=== PATIENT | female | born 1935 | race Caucasian/White ===

== ENCOUNTER → 2016-07-03 | Outpatient (CLI) | payer MEDICARE, OTHER ==
[~2016-07-03] MED LIST: BONIVA PO; CALCIUM PO; CHOL10002 PO; FLUO20CA19 PO; LEVO112T4 PO; METO50TA11 PO
== END | disposition home or self-care (01) ==
LOC: CFH 12:17
PROVIDERS: ATTEND Radiology Radiation Oncology
DX: Z12.31 Encounter for screening mammogram for malignant neoplasm of breast (principal); Z85.3 Personal history of malignant neoplasm of breast; Z90.12 Acquired absence of left breast and nipple; Z90.11 Acquired absence of right breast and nipple; Z92.3 Personal history of irradiation; Z92.21 Personal history of antineoplastic chemotherapy
CPT/HCPCS: 77063; G0202

== ENCOUNTER → 2016-10-17 | Outpatient (CLI) | payer MEDICARE, OTHER | END | disposition home or self-care (01) | LOC: CFH 14:03 | PROVIDERS: ATTEND Radiology Radiation Oncology | DX: M16.0 Bilateral primary osteoarthritis of hip (principal); M47.896 Other spondylosis, lumbar region; M25.78 Osteophyte, vertebrae; C50.412 Malignant neoplasm of upper-outer quadrant of left female breast ==

== ENCOUNTER → 2016-10-17 | Outpatient (CLI) | payer MEDICARE, OTHER | END | disposition home or self-care (01) | LOC: ROC 12:52 | PROVIDERS: ATTEND Radiology Radiation Oncology | DX: C50.912 Malignant neoplasm of unspecified site of left female breast (principal) | CPT/HCPCS: G0463 ==

== ENCOUNTER → 2016-12-26 | Outpatient (CLI) | payer MEDICARE, OTHER | END | disposition home or self-care (01) | LOC: CFH 13:29 | PROVIDERS: ATTEND Internal Medicine Hematology & Oncology | DX: N63 Unspecified lump in breast (principal); Z85.3 Personal history of malignant neoplasm of breast | CPT/HCPCS: 76641; G0206 ==

== ENCOUNTER → 2017-04-30 | Outpatient (CLI) | payer MEDICARE, OTHER ==
[~2017-04-30] MED LIST changes: +METO-264 PO; -METO50TA11 PO
== END | disposition home or self-care (01) ==
LOC: ROC 11:03
PROVIDERS: ATTEND Radiology Radiation Oncology
DX: Z08 Encounter for follow-up examination after completed treatment for malignant neoplasm (principal); C50.911 Malignant neoplasm of unspecified site of right female breast; Z88.0 Allergy status to penicillin
CPT/HCPCS: G0463

== ENCOUNTER 2017-08-14 09:44 | Day surgery (SDC) | payer MEDICARE, OTHER ==
[~2017-08-14] VITALS: Ht 157.5 cm; Wt 55.5 kg
[2017-08-14 10:25] VITALS: BP 161/64
[2017-08-14] MEDS ORDERED: SODIUM CHLORIDE 0.9% 1,000 ML IV SCH (10:30)
[2017-08-14] MEDS ORDERED: LOSA25TA5 PO (10:32)
[2017-08-14] MEDS ORDERED: ALLO100T30 PO (10:32)
[2017-08-14] MEDS ORDERED: SIMV20TA3 PO (10:33)
[2017-08-14] MEDS ORDERED: PROPOFOL 10 MG/ML, 20ML ONE (11:51)
== END 2017-08-14 13:16 | disposition home or self-care (01) ==
LOC: CACL 09:44
PROVIDERS: ATTEND Internal Medicine Cardiovascular Disease
DX: I05.0 Rheumatic mitral stenosis (principal); I10 Essential (primary) hypertension; E78.5 Hyperlipidemia, unspecified; E03.9 Hypothyroidism, unspecified; Z72.0 Tobacco use
CPT/HCPCS: 93312; 93321; 93325; J2704

== ENCOUNTER 2017-09-16 08:00 | Day surgery (SDC) | payer MEDICARE, OTHER ==
[~2017-09-16] VITALS: Ht 160 cm; Wt 53.6 kg
[~2017-09-16 08:00] MED LIST changes: +ALLO100T30 PO; +LOSA25TA5 PO; +SIMV20TA3 PO
[2017-09-16 08:19] VITALS: BP 149/59
[2017-09-16 09:06] LABS: BASOPHILS # (AUTO) 0.02 x10^3/uL (0-0.1); BASOPHILS % (AUTO) 0 % (0-1); EOSINOPHILS # (AUTO) 0.12 x10^3/uL (0-0.4); EOSINOPHILS % (AUTO) 2 % (1-7); LYMPHOCYTES % (AUTO) 22 % (22-44); MD NO; MEAN CORPUSCULAR HGB CONC 33.9 g/dL (32.4-35.8); MEAN CORPUSCULAR VOLUME 91.3 fL (80-100); MEAN PLATELET VOLUME 8.2 fL (7.4-10.4); MONOCYTES # (AUTO) 0.52 x10^3/uL (0.2-0.8); MONOCYTES % (AUTO) 10 % (2-9); NEUTROPHILS # (AUTO) 3.25 x10^3/uL (1.8-6.8); NEUTROPHILS % (AUTO) 65 % (42-75); PLATELET COUNT 235 x10^3/uL (130-400); RED BLOOD COUNT 4.44 x10^6/uL (3.82-5.3); RED CELL DISTRIBUTION WIDTH 14.1 % (9.6-15.2)
[2017-09-16 09:07] LABS: ANION GAP 6 mmol/L (5-15); CALCIUM 9.3 mg/dL (8.5-10.1); CHLORIDE 105 mmol/L (98-107); CREATININE 0.98 mg/dL (0.55-1.02)
[2017-09-16] MEDS ORDERED: FENTANYL PF 100 MCG/2ML ONE (09:49)
[2017-09-16] MEDS ORDERED: LIDOCAINE/PF 1%, 30ML ONE (09:49)
[2017-09-16] MEDS ORDERED: MIDAZOLAM 1 MG/ML, 2ML ONE (09:49)
== END 2017-09-16 17:09 ==
LOC: CACL 08:00
PROVIDERS: ATTEND Internal Medicine Cardiovascular Disease
DX: I25.10 Atherosclerotic heart disease of native coronary artery without angina pectoris (principal); I10 Essential (primary) hypertension; E78.5 Hyperlipidemia, unspecified; E03.9 Hypothyroidism, unspecified; Z72.0 Tobacco use; Z88.1 Allergy status to other antibiotic agents; Z88.0 Allergy status to penicillin
CPT/HCPCS: 36415; 80048; 85025; 93458; 99156; 99157; C1769; C1894; J2250; J3010; J3490; Q9967

== ENCOUNTER → 2017-09-26 | Outpatient (CLI) | payer MEDICARE, OTHER | END | disposition home or self-care (01) | LOC: ROC 07:29 | PROVIDERS: ATTEND Radiology Radiation Oncology | DX: Z08 Encounter for follow-up examination after completed treatment for malignant neoplasm (principal); C79.31 Secondary malignant neoplasm of brain; Z85.3 Personal history of malignant neoplasm of breast | CPT/HCPCS: G0463 ==

== ENCOUNTER 2017-10-17 04:29 | Inpatient (IN) | payer MEDICARE, OTHER ==
[2017-10-16 14:21] LABS: MICROSCOPIC AUTO
[2017-10-16 14:25] LABS: BASOPHILS # (AUTO) 0.05 x10^3/uL (0-0.1); BASOPHILS % (AUTO) 1 % (0-1); EOSINOPHILS # (AUTO) 0.42 x10^3/uL (0-0.4); EOSINOPHILS % (AUTO) 6 % (1-7); LYMPHOCYTES % (AUTO) 21 % (22-44); MD NO; MEAN CORPUSCULAR HEMOGLOBIN 30.2 pg (27.0-34.8); MEAN CORPUSCULAR HGB CONC 32.9 g/dL (32.4-35.8); MEAN CORPUSCULAR VOLUME 91.8 fL (80-100); MEAN PLATELET VOLUME 8.2 fL (7.4-10.4); MONOCYTES # (AUTO) 0.71 x10^3/uL (0.2-0.8); MONOCYTES % (AUTO) 9 % (2-9); NEUTROPHILS % (AUTO) 63 % (42-75); PLATELET COUNT 256 x10^3/uL (130-400); RED BLOOD COUNT 4.53 x10^6/uL (3.82-5.3); RED CELL DISTRIBUTION WIDTH 14.1 % (9.6-15.2)
[2017-10-16 14:27] LABS: ALBUMIN 3.6 g/dL (3.4-5.0); ANION GAP 5 mmol/L (5-15); CALCIUM 9.6 mg/dL (8.5-10.1); CHLORIDE 106 mmol/L (98-107)
[2017-10-16 14:30] LABS: ALANINE AMINOTRANSFERASE 19 U/L (12-78); ALKALINE PHOSPHATASE 93 U/L (45-117); BILIRUBIN,TOTAL 0.5 mg/dL (0.2-1.0); CREATININE 1.05 mg/dL (0.55-1.02); INTERNATIONAL NORMALIZED RATIO 0.98 (0.93-1.1); PROTHROMBIN TIME 10.2 Seconds (9.6-11.5); TOTAL PROTEIN 7.7 g/dL (6.4-8.2)
[2017-10-16 14:52] LABS: HEMOGLOBIN A1C 5.8 % (4.2-6.3)
[~2017-10-17] VITALS: Ht 160 cm; Wt 68.0 kg
[~2017-10-17 04:29] MED LIST changes: +ATOR40TA78 PO; +CALC1CAP8 PO; +IBAN150T PO
[2017-10-17] MEDS ORDERED: CHLORHEXIDINE 15 ML BOTTLE MM SCH (05:00)
[2017-10-17] MEDS ORDERED: INSULIN LISPRO 100 UNITS/ML, PEN SQ-INSULIN SCH (05:00)
[2017-10-17 05:53] VITALS: BP_SYST 124; BP_SYST 139; BP_DIAS 69; BP_DIAS 72
[2017-10-17] MEDS ORDERED: PAPAVERINE 30 MG/ML, 2ML ONE ×2 (06:33→07:05)
[2017-10-17] MEDS ORDERED: HEPARIN 1,000 UNITS/ML, 10ML ONE (06:33)
[2017-10-17] MEDS ORDERED: ALBUMIN HUMAN 5% 500 ML IV PRN (07:00)
[2017-10-17] MEDS ORDERED: SUFentanil 50 MCG/ML, 5ML ONE (07:13)
[2017-10-17] MEDS ORDERED: MIDAZOLAM 10MG/2 ML ONE (07:13)
[2017-10-17] MEDS ORDERED: PHENYLEPHRINE 10 MG in SODIUM CHLORIDE 0.9% 249 ML IV PRN ×2 (07:30→09:59)
[2017-10-17] MEDS ORDERED: VANCOMYCIN 800 MG in SODIUM CHLORIDE 0.9% 250 ML IV PRN (07:30)
[2017-10-17] MEDS ORDERED: POTASSIUM CHLORIDE 80 MEQ, SODIUM BICARBONATE 8.4% 10 MEQ, MAGNESIUM SULFATE 0.5 GM, LI... IV PRN (07:30)
[2017-10-17] MEDS ORDERED: MANNITOL PMX 20% 500 ML IVPB PRN (07:30)
[2017-10-17] MEDS ORDERED: REGULAR INSULIN 62.5 UNITS in SODIUM CHLORIDE 0.9% 249.375 ML IV PRN ×2 (07:30→09:59)
[2017-10-17] MEDS ORDERED: DEXMEDETOMIDINE 200 MCG in SODIUM CHLORIDE 0.9% 48 ML IV SCH (07:30)
[2017-10-17] MEDS ORDERED: EPINEPHRINE 2 MG in SODIUM CHLORIDE 0.9% 248 ML IV SCH (07:30)
[2017-10-17] MEDS ORDERED: VASOPRESSIN 20 UNIT/ML, 1ML ONE (08:46)
[2017-10-17] MEDS: DOCUSATE 100 MG CAPSULE PO SCH ×2 (09:00→21:33)
[2017-10-17] MEDS: SODIUM CHLORIDE FLUSH 10ML SYR IVF SCH ×3 (09:00→21:10)
[2017-10-17] MEDS ORDERED: MUPIROCIN OINT 2%, 22GM TP SCH (09:00)
[2017-10-17] MEDS ORDERED: ROCURONIUM 10MG/ML,5ML ONE ×2 (09:19)
[2017-10-17] MEDS ORDERED: EPINEPHRINE 1 MG/ML, 1ML ONE (09:19)
[2017-10-17] MEDS ORDERED: PROTAMINE SULFATE 10 MG/ML, 25ML ONE (09:19)
[2017-10-17] MEDS ORDERED: PROPOFOL 10 MG/ML, 20ML ONE (09:19)
[2017-10-17] MEDS ORDERED: PHENYLEPHRINE 10 MG/ML ONE (09:19)
[2017-10-17] MEDS ORDERED: AMINOCAPROIC ACID 250 MG/ML, 20ML ONE ×2 (09:19)
[2017-10-17] MEDS ORDERED: VASOPRESSIN 50 UNIT in SODIUM CHLORIDE 0.9% 247.5 ML IV PRN (09:59)
[2017-10-17] MEDS ORDERED: DEXMEDETOMIDINE 200 MCG in SODIUM CHLORIDE 0.9% 48 ML IV PRN (09:59)
[2017-10-17] MEDS ORDERED: SODIUM CHLORIDE 0.9% 1,000 ML IV PRN (09:59)
[2017-10-17] MEDS ORDERED: LACTATED RINGERS 1,000 ML IV SCH (09:59)
[2017-10-17] MEDS ORDERED: DOBUTAMINE 250 MG in SODIUM CHLORIDE 0.9% 230 ML IV PRN (09:59)
[2017-10-17] MEDS ORDERED: DEXTROSE 4 GM TAB.CHEW PO PRN (10:00)
[2017-10-17] MEDS ORDERED: INSULIN REGULAR 100 UNITS/ML, 3ML VIAL IVPush PRN (10:00)
[2017-10-17] MEDS ORDERED: HYDROcodone/APAP 5/325 TABLET PO PRN (10:00)
[2017-10-17] MEDS ORDERED: MIDAZOLAM 1 MG/ML, 5ML IVPush PRN (10:00)
[2017-10-17] MEDS ORDERED: EPINEPHRINE 2 MG in SODIUM CHLORIDE 0.9% 248 ML IV PRN (10:00)
[2017-10-17] MEDS ORDERED: GLUCAGON 1 MG IM PRN (10:00)
[2017-10-17] MEDS ORDERED: SODIUM BICARB 8.4%, 50ML SYRINGE IV PRN (10:00)
[2017-10-17] MEDS ORDERED: morphine SULFATE 10 MG/ML, 1ML IVPush PRN (10:00)
[2017-10-17] MEDS ORDERED: OXYcodone IR 5MG TABLET PO PRN (10:00)
[2017-10-17] MEDS ORDERED: DEXTROSE 50%, 50ML SYRINGE IVPush PRN (10:00)
[2017-10-17] MEDS ORDERED: ACETAMINOPHEN 650 MG SUPP PR PRN (10:00)
[2017-10-17] MEDS ORDERED: PROCHLORPERAZINE 5 MG/ML, 2ML IVPush PRN (10:00)
[2017-10-17] MEDS ORDERED: MAGNESIUM SULFATE 1 GM in SODIUM CHLORIDE 0.9% 50 ML IVPB SCH (10:00)
[2017-10-17] MEDS ORDERED: BISACODYL 10 MG SUPP PR PRN (10:00)
[2017-10-17] MEDS ORDERED: CALCIUM CHLORIDE 10%, 10ML SYR ONE (10:38)
[2017-10-17] MEDS ORDERED: ALBUMIN HUMAN 25% 50 ML ONE (10:53)
[2017-10-17] MEDS ORDERED: LIDOCAINE 2% 100MG/5ML SYRINGE ONE (10:53)
[2017-10-17] MEDS ORDERED: SODIUM BICARBONATE 1 MEQ/ML, 50ML VIAL ONE (10:53)
[2017-10-17] MEDS ORDERED: methylPREDNISolone SOD SUCC 125 MG/2 ML ONE (10:53)
[2017-10-17] MEDS ORDERED: HEPARIN 1,000 UNITS/ML, 30ML ONE (10:53)
[2017-10-17] MEDS: INSULIN LISPRO 100 UNITS/ML, PEN SQ-INSULIN SCH ×3 (11:00→21:12)
[2017-10-17 11:35] LABS: GLUCOSE BY BLOOD GAS ANALYZER 171 mg/dL (70-110); HEMOGLOBIN BY BLOOD GAS ANALYZ 13.1 g/dL (14.0-18.0); POTASSIUM BY BLOOD GAS ANALYZR 4.1 mmol/L (3.6-5.5)
[2017-10-17] MEDS ORDERED: STERILE WATER IVPB SCH (12:00)
[2017-10-17] MEDS: KSCALE TO 4.5 IV SCH ×2 (12:00→21:39)
[2017-10-17] MEDS ORDERED: MAGNESIUM SULFATE IVPB SCH (12:00)
[2017-10-17 12:16] LABS: INTERNATIONAL NORMALIZED RATIO 1.26 (0.93-1.1)
[2017-10-17] MEDS: NITROGLYCERIN/D5W PMX 250 ML IV PRN (12:18)
[2017-10-17] MEDS: LACTATED RINGERS 1,000 ML IV PRN ×2 (13:05→14:52)
[2017-10-17] MEDS ORDERED: ALBUMIN HUMAN 5% 500 ML IV ONE ×2 (16:00→17:30)
[2017-10-17] MEDS: FENTANYL PF 100 MCG/2ML IVPush PRN ×4 (17:36→20:07)
[2017-10-17] MEDS: VANCOMYCIN 800 MG in SODIUM CHLORIDE 0.9% 250 ML IVPB SCH (18:25)
[2017-10-17] MEDS ORDERED: ALBUTEROL/IPRATROPIUM 2.5MG/0.5MG, 3 ML ONE (18:44)
[2017-10-17] MEDS: ONDANSETRON 2MG/ML, 2ML IVPush PRN (20:03)
[2017-10-17] MEDS: CEFUROXIME 1.5 GM in SODIUM CHLORIDE 0.9% 50 ML IVPB SCH (21:08)
[2017-10-17] MEDS: MUPIROCIN OINT 2%, 22GM NAS SCH (21:33)
[2017-10-17] MEDS ORDERED: SODIUM CHLORIDE 0.9%, 250ML IVBOLUS ONE (22:30)
[2017-10-18] MEDS: KSCALE TO 4.5 IV SCH ×2 (00:59→05:57)
[2017-10-18] MEDS: HYDROcodone/APAP 10/325 MG TABLET PO PRN ×6 (01:01→23:56)
[2017-10-18 01:10] LABS: ANION GAP 9 mmol/L (5-15); CALCIUM 7.6 mg/dL (8.5-10.1); CHLORIDE 114 mmol/L (98-107); CREATININE 0.92 mg/dL (0.55-1.02)
[2017-10-18 05:26] LABS: INTERNATIONAL NORMALIZED RATIO 1.08 (0.93-1.1); PROTHROMBIN TIME 11.2 Seconds (9.6-11.5)
[2017-10-18 05:29] LABS: ALBUMIN 3.2 g/dL (3.4-5.0); ANION GAP 8 mmol/L (5-15); CHLORIDE 114 mmol/L (98-107); CREATININE 0.92 mg/dL (0.55-1.02)
[2017-10-18 05:30] LABS: CALCIUM 7.4 mg/dL (8.5-10.1)
[2017-10-18 05:48] LABS: BASOPHILS # (AUTO) 0.04 x10^3/uL (0-0.1); BASOPHILS % (AUTO) 0 % (0-1); EOSINOPHILS % (AUTO) 0 % (1-7); LYMPHOCYTES # (AUTO) 0.43 x10^3/uL (1-3.4); LYMPHOCYTES % (AUTO) 3 % (22-44); MD NO; MEAN CORPUSCULAR HEMOGLOBIN 30.3 pg (27.0-34.8); MEAN CORPUSCULAR HGB CONC 33.2 g/dL (32.4-35.8); MEAN CORPUSCULAR VOLUME 91.5 fL (80-100); MEAN PLATELET VOLUME 8.4 fL (7.4-10.4); MONOCYTES # (AUTO) 1.03 x10^3/uL (0.2-0.8); MONOCYTES % (AUTO) 7 % (2-9); NEUTROPHILS # (AUTO) 12.79 x10^3/uL (1.8-6.8); NEUTROPHILS % (AUTO) 90 % (42-75); PLATELET COUNT 133 x10^3/uL (130-400); RED BLOOD COUNT 3.82 x10^6/uL (3.82-5.3); RED CELL DISTRIBUTION WIDTH 15.2 % (9.6-15.2)
[2017-10-18] MEDS: VANCOMYCIN 800 MG in SODIUM CHLORIDE 0.9% 250 ML IVPB SCH (05:56)
[2017-10-18] MEDS: NITROGLYCERIN/D5W PMX 250 ML IV PRN (06:20)
[2017-10-18] MEDS ORDERED: ALBUTEROL/IPRATROPIUM 2.5MG/0.5MG, 3 ML IPPB SCH (07:00)
[2017-10-18] MEDS: INSULIN LISPRO 100 UNITS/ML, PEN SQ-INSULIN SCH ×4 (07:00→20:47)
[2017-10-18] MEDS: SODIUM CHLORIDE FLUSH 10ML SYR IVF SCH ×4 (07:10→20:47)
[2017-10-18] MEDS: LOSARTAN 25MG TABLET PO SCH (08:33)
[2017-10-18] MEDS: ASPIRIN 81 MG TABLET EC PO SCH (08:33)
[2017-10-18] MEDS: CEFUROXIME 1.5 GM in SODIUM CHLORIDE 0.9% 50 ML IVPB SCH (08:34)
[2017-10-18] MEDS: FLUOXETINE HCL 20 MG CAPSULE PO SCH (08:34)
[2017-10-18] MEDS: DOCUSATE 100 MG CAPSULE PO SCH ×2 (08:36→20:47)
[2017-10-18] MEDS: MUPIROCIN OINT 2%, 22GM NAS SCH ×2 (08:43→20:46)
[2017-10-18] MEDS: WARFARIN BIOPROSTHETIC VALVE PROTOCOL 2-3 XX SCH (09:00)
[2017-10-18] MEDS: FENTANYL PF 100 MCG/2ML IVPush PRN (11:02)
[2017-10-18] MEDS: CHLORHEXIDINE 15 ML BOTTLE MM SCH ×2 (11:03→22:59)
[2017-10-18] MEDS ORDERED: ONDANSETRON ODT 4 MG ONE (12:40)
[2017-10-18] MEDS: MAGNESIUM SULFATE 1 GM in STERILE WATER 25 ML IVPB SCH (13:31)
[2017-10-18] MEDS ORDERED: WARFARIN 5 MG TABLET PO-COUM ONE (18:00)
[2017-10-18 18:40] LABS: MICROSCOPIC INDICATED
[2017-10-18 19:46] LABS: ANION GAP 12 mmol/L (5-15); CALCIUM 7.8 mg/dL (8.5-10.1); CHLORIDE 108 mmol/L (98-107); CREATININE 1.17 mg/dL (0.55-1.02)
[2017-10-18 19:53] LABS: BASOPHILS # (AUTO) 0.01 x10^3/uL (0-0.1); BASOPHILS % (AUTO) 0 % (0-1); EOSINOPHILS % (AUTO) 0 % (1-7); LYMPHOCYTES # (AUTO) 0.73 x10^3/uL (1-3.4); LYMPHOCYTES % (AUTO) 5 % (22-44); MD NO; MEAN CORPUSCULAR HEMOGLOBIN 30.1 pg (27.0-34.8); MEAN CORPUSCULAR HGB CONC 33.1 g/dL (32.4-35.8); MEAN CORPUSCULAR VOLUME 90.9 fL (80-100); MEAN PLATELET VOLUME 8.9 fL (7.4-10.4); MONOCYTES # (AUTO) 1.09 x10^3/uL (0.2-0.8); MONOCYTES % (AUTO) 8 % (2-9); NEUTROPHILS # (AUTO) 12.33 x10^3/uL (1.8-6.8); NEUTROPHILS % (AUTO) 87 % (42-75); PLATELET COUNT 112 x10^3/uL (130-400); RED BLOOD COUNT 3.98 x10^6/uL (3.82-5.3); RED CELL DISTRIBUTION WIDTH 15.5 % (9.6-15.2)
[2017-10-18 19:55] LABS: ACETONE, SERUM Negative (Negative)
[2017-10-18] MEDS ORDERED: FUROSEMIDE 40 MG/4 ML ONE (22:54)
[2017-10-18] MEDS ORDERED: FUROSEMIDE 40 MG/4 ML IV ONE (23:00)
[2017-10-19 05:21] VITALS: BP 124/52
[2017-10-19 05:34] LABS: ANION GAP 10 mmol/L (5-15); CALCIUM 7.9 mg/dL (8.5-10.1); CHLORIDE 107 mmol/L (98-107)
[2017-10-19 05:35] LABS: INTERNATIONAL NORMALIZED RATIO 1.11 (0.93-1.1); PROTHROMBIN TIME 11.5 Seconds (9.6-11.5)
[2017-10-19 05:36] LABS: MEAN CORPUSCULAR HEMOGLOBIN 29.5 pg (27.0-34.8); MEAN CORPUSCULAR HGB CONC 32.3 g/dL (32.4-35.8); MEAN CORPUSCULAR VOLUME 91.4 fL (80-100); MEAN PLATELET VOLUME 9.1 fL (7.4-10.4); PLATELET COUNT 92 x10^3/uL (130-400); RED BLOOD COUNT 4.15 x10^6/uL (3.82-5.3); RED CELL DISTRIBUTION WIDTH 15.5 % (9.6-15.2)
[2017-10-19 06:04] LABS: BASOPHILS # (AUTO) 0.03 x10^3/uL (0-0.1); BASOPHILS % (AUTO) 0 % (0-1); EOSINOPHILS # (AUTO) 0.01 x10^3/uL (0-0.4); EOSINOPHILS % (AUTO) 0 % (1-7); LYMPHOCYTES # (AUTO) 0.71 x10^3/uL (1-3.4); LYMPHOCYTES % (AUTO) 6 % (22-44); MONOCYTES # (AUTO) 0.95 x10^3/uL (0.2-0.8); MONOCYTES % (AUTO) 8 % (2-9); NEUTROPHILS # (AUTO) 11.05 x10^3/uL (1.8-6.8); NEUTROPHILS % (AUTO) 87 % (42-75)
[2017-10-19 06:15] LABS: MD SCAN
[2017-10-19] MEDS: LEVOTHYROXINE 112 MCG TABLET PO SCH (06:25)
[2017-10-19] MEDS: INSULIN LISPRO 100 UNITS/ML, PEN SQ-INSULIN SCH ×4 (07:00→21:00)
[2017-10-19] MEDS: SODIUM CHLORIDE FLUSH 10ML SYR IVF SCH ×4 (09:00→21:26)
[2017-10-19] MEDS: WARFARIN BIOPROSTHETIC VALVE PROTOCOL 2-3 XX SCH (09:00)
[2017-10-19] MEDS: MUPIROCIN OINT 2%, 22GM NAS SCH ×2 (10:17→22:07)
[2017-10-19] MEDS: CHLORHEXIDINE 15 ML BOTTLE MM SCH ×2 (10:17→22:07)
[2017-10-19] MEDS: ASPIRIN 81 MG TABLET EC PO SCH (10:18)
[2017-10-19] MEDS: DOCUSATE 100 MG CAPSULE PO SCH ×2 (10:18→21:26)
[2017-10-19] MEDS: FLUOXETINE HCL 20 MG CAPSULE PO SCH (10:18)
[2017-10-19] MEDS: LOSARTAN 25MG TABLET PO SCH (10:18)
[2017-10-19] MEDS: ACETAMINOPHEN 325 MG TABLET PO PRN ×2 (11:58→21:26)
[2017-10-19] MEDS: MAGNESIUM SULFATE 1 GM in STERILE WATER 25 ML IVPB SCH (12:53)
[2017-10-19] MEDS ORDERED: SODIUM CHLORIDE 0.9%, 250ML IVBOLUS ONE (15:30)
[2017-10-19] MEDS ORDERED: WARFARIN 5 MG TABLET PO-COUM ONE (18:00)
[2017-10-19] MEDS: SODIUM CHLORIDE 0.9% 1,000 ML IV SCH (23:06)
[2017-10-19] MEDS: FENTANYL PF 100 MCG/2ML IVPush PRN (23:47)
[2017-10-20] MEDS: ACETAMINOPHEN 325 MG TABLET PO PRN (02:44)
[2017-10-20 04:00] VITALS: BP 106/37
[2017-10-20 05:42] LABS: ANION GAP 11 mmol/L (5-15); CALCIUM 8.2 mg/dL (8.5-10.1); CHLORIDE 107 mmol/L (98-107)
[2017-10-20] MEDS: LEVOTHYROXINE 112 MCG TABLET PO SCH (06:10)
[2017-10-20 06:31] LABS: MEAN CORPUSCULAR HEMOGLOBIN 29.9 pg (27.0-34.8); MEAN CORPUSCULAR HGB CONC 32.7 g/dL (32.4-35.8); MEAN CORPUSCULAR VOLUME 91.5 fL (80-100); MEAN PLATELET VOLUME 9.1 fL (7.4-10.4); PLATELET COUNT 83 x10^3/uL (130-400); RED BLOOD COUNT 4.12 x10^6/uL (3.82-5.3); RED CELL DISTRIBUTION WIDTH 14.7 % (9.6-15.2)
[2017-10-20 06:33] LABS: MD YES
[2017-10-20 06:35] LABS: <PLATELET ESTIMATE> DECREASED; <PLT MORPHOLOGY> NORMAL PLT MORPH; <RBC MORPHOLOGY> NORMAL; BAND#(MANUAL) 0.11 x10^3/uL; BANDS%(MANUAL) 1 % (0-7); LYMPH#(MANUAL) 0.66 x10^3/uL (1-3.4); LYMPHS% (MANUAL) 6 % (22-44); METAMYELOCYTES# (MANUAL) 0.11 x10^3/uL (0-0); METAMYELOCYTES% (MANUAL) 1 % (0-1); MONOS#(MANUAL) 0.88 x10^3/uL (0.3-2.7); MONOS% (MANUAL) 8 % (2-9); SEG#(MANUAL) 9.24 x10^3/uL (1.8-6.8); SEGS% (MANUAL) 84 % (42-75)
[2017-10-20] MEDS: INSULIN LISPRO 100 UNITS/ML, PEN SQ-INSULIN SCH ×4 (07:00→20:52)
[2017-10-20] MEDS: SODIUM CHLORIDE FLUSH 10ML SYR IVF SCH ×3 (08:01→20:41)
[2017-10-20] MEDS: FLUOXETINE HCL 20 MG CAPSULE PO SCH (08:16)
[2017-10-20] MEDS: DOCUSATE 100 MG CAPSULE PO SCH ×2 (08:16→20:41)
[2017-10-20] MEDS: ASPIRIN 81 MG TABLET EC PO SCH (08:16)
[2017-10-20] MEDS: MUPIROCIN OINT 2%, 22GM NAS SCH ×2 (08:17→20:41)
[2017-10-20] MEDS: LOSARTAN 25MG TABLET PO SCH (08:22)
[2017-10-20] MEDS: WARFARIN BIOPROSTHETIC VALVE PROTOCOL 2-3 XX SCH (08:23)
[2017-10-20] MEDS: SODIUM CHLORIDE 0.9% 1,000 ML IV SCH (08:23)
[2017-10-20 12:27] LABS: INTERNATIONAL NORMALIZED RATIO 1.29 (0.93-1.1); PROTHROMBIN TIME 13.3 Seconds (9.6-11.5)
[2017-10-20] MEDS: OXYcodone/APAP 5/325MG TABLET PO PRN ×2 (14:50→23:12)
[2017-10-20] MEDS ORDERED: WARFARIN 5 MG TABLET PO-COUM ONE (18:00)
[2017-10-20] MEDS: SODIUM BICARBONATE 650 MG TABLET PO SCH (20:41)
[2017-10-21 04:00] VITALS: BP 106/43
[2017-10-21 04:26] LABS: BASOPHILS # (AUTO) 0.07 x10^3/uL (0-0.1); BASOPHILS % (AUTO) 1 % (0-1); EOSINOPHILS # (AUTO) 0.08 x10^3/uL (0-0.4); EOSINOPHILS % (AUTO) 1 % (1-7); LYMPHOCYTES # (AUTO) 0.68 x10^3/uL (1-3.4); LYMPHOCYTES % (AUTO) 6 % (22-44); MD NO; MEAN CORPUSCULAR HEMOGLOBIN 29.9 pg (27.0-34.8); MEAN CORPUSCULAR HGB CONC 32.8 g/dL (32.4-35.8); MEAN CORPUSCULAR VOLUME 91.1 fL (80-100); MEAN PLATELET VOLUME 8.3 fL (7.4-10.4); MONOCYTES # (AUTO) 1.06 x10^3/uL (0.2-0.8); MONOCYTES % (AUTO) 10 % (2-9); NEUTROPHILS # (AUTO) 9.13 x10^3/uL (1.8-6.8); NEUTROPHILS % (AUTO) 83 % (42-75); PLATELET COUNT 119 x10^3/uL (130-400); RED BLOOD COUNT 4.07 x10^6/uL (3.82-5.3); RED CELL DISTRIBUTION WIDTH 14.7 % (9.6-15.2)
[2017-10-21 04:30] LABS: INTERNATIONAL NORMALIZED RATIO 1.63 (0.93-1.1); PROTHROMBIN TIME 16.8 Seconds (9.6-11.5)
[2017-10-21 04:35] LABS: ALBUMIN 2.6 g/dL (3.4-5.0); ANION GAP 8 mmol/L (5-15); CALCIUM 8.8 mg/dL (8.5-10.1); CHLORIDE 105 mmol/L (98-107)
[2017-10-21 04:41] LABS: ALANINE AMINOTRANSFERASE 25 U/L (12-78); ALKALINE PHOSPHATASE 63 U/L (45-117); BILIRUBIN,TOTAL 0.8 mg/dL (0.2-1.0); CREATININE 2.02 mg/dL (0.55-1.02); TOTAL PROTEIN 5.6 g/dL (6.4-8.2)
[2017-10-21] MEDS: INSULIN LISPRO 100 UNITS/ML, PEN SQ-INSULIN SCH ×4 (07:00→21:25)
[2017-10-21] MEDS: LEVOTHYROXINE 112 MCG TABLET PO SCH (08:00)
[2017-10-21] MEDS: WARFARIN BIOPROSTHETIC VALVE PROTOCOL 2-3 XX SCH (09:00)
[2017-10-21] MEDS: SODIUM BICARBONATE 650 MG TABLET PO SCH ×2 (09:21→21:17)
[2017-10-21] MEDS: DOCUSATE 100 MG CAPSULE PO SCH ×2 (09:23→21:17)
[2017-10-21] MEDS: ASPIRIN 81 MG TABLET EC PO SCH (09:23)
[2017-10-21] MEDS: FLUOXETINE HCL 20 MG CAPSULE PO SCH (09:25)
[2017-10-21] MEDS: LOSARTAN 25MG TABLET PO SCH (09:25)
[2017-10-21] MEDS: ACETAMINOPHEN 325 MG TABLET PO PRN ×2 (11:22→22:36)
[2017-10-21] MEDS: SODIUM CHLORIDE 0.9% 1,000 ML IV SCH (12:01)
[2017-10-21] MEDS: SODIUM CHLORIDE FLUSH 10ML SYR IVF SCH ×2 (12:02→21:17)
[2017-10-21] MEDS: MUPIROCIN OINT 2%, 22GM NAS SCH ×2 (12:04→21:17)
[2017-10-21] MEDS ORDERED: VANCOMYCIN 500 MG ONE (12:53)
[2017-10-21] MEDS ORDERED: FENTANYL PF 100 MCG/2ML ONE (12:53)
[2017-10-21] MEDS ORDERED: VANCOMYCIN PMX 1GM/200ML 0 ML ONE (12:53)
[2017-10-21] MEDS ORDERED: MIDAZOLAM 1 MG/ML, 5ML ONE (12:53)
[2017-10-21] MEDS ORDERED: LIDOCAINE/PF 1%, 30ML ONE (12:53)
[2017-10-21] MEDS ORDERED: WARFARIN 7.5 MG TABLET PO-COUM ONE (18:00)
[2017-10-22] MEDS: BISACODYL 5 MG EC TABLET PO PRN ×2 (02:54→20:55)
[2017-10-22] MEDS: ACETAMINOPHEN 325 MG TABLET PO PRN ×4 (02:54→23:43)
[2017-10-22] MEDS: SODIUM CHLORIDE 0.9% 1,000 ML IV SCH ×2 (02:56→20:54)
[2017-10-22] MEDS ORDERED: VANCOMYCIN 1,000 MG in SODIUM CHLORIDE 0.9% 250 ML IV ONE (03:00)
[2017-10-22 03:23] LABS: BASOPHILS # (AUTO) 0.02 x10^3/uL (0-0.1); BASOPHILS % (AUTO) 0 % (0-1); EOSINOPHILS % (AUTO) 1 % (1-7); LYMPHOCYTES # (AUTO) 0.51 x10^3/uL (1-3.4); LYMPHOCYTES % (AUTO) 6 % (22-44); MD NO; MEAN CORPUSCULAR HEMOGLOBIN 30.2 pg (27.0-34.8); MEAN CORPUSCULAR HGB CONC 33.4 g/dL (32.4-35.8); MEAN CORPUSCULAR VOLUME 90.4 fL (80-100); MEAN PLATELET VOLUME 7.9 fL (7.4-10.4); MONOCYTES # (AUTO) 0.96 x10^3/uL (0.2-0.8); MONOCYTES % (AUTO) 11 % (2-9); NEUTROPHILS % (AUTO) 83 % (42-75); PLATELET COUNT 139 x10^3/uL (130-400); RED BLOOD COUNT 4.09 x10^6/uL (3.82-5.3); RED CELL DISTRIBUTION WIDTH 14.4 % (9.6-15.2)
[2017-10-22 03:34] LABS: ANION GAP 8 mmol/L (5-15); CALCIUM 8.8 mg/dL (8.5-10.1); CHLORIDE 106 mmol/L (98-107)
[2017-10-22 03:35] LABS: CREATININE 1.37 mg/dL (0.55-1.02)
[2017-10-22 03:39] LABS: INTERNATIONAL NORMALIZED RATIO 2.45 (0.93-1.1)
[2017-10-22] MEDS ORDERED: KETOROLAC 30 MG/1 ML IVPush PRN (05:00)
[2017-10-22 05:07] VITALS: BP 120/66
[2017-10-22] MEDS: LEVOTHYROXINE 112 MCG TABLET PO SCH (05:33)
[2017-10-22] MEDS: INSULIN LISPRO 100 UNITS/ML, PEN SQ-INSULIN SCH (07:00)
[2017-10-22] MEDS: ASPIRIN 81 MG TABLET EC PO SCH (08:21)
[2017-10-22] MEDS: FLUOXETINE HCL 20 MG CAPSULE PO SCH (08:21)
[2017-10-22] MEDS: SODIUM CHLORIDE FLUSH 10ML SYR IVF SCH ×2 (08:21→20:55)
[2017-10-22] MEDS: MUPIROCIN OINT 2%, 22GM NAS SCH (08:21)
[2017-10-22] MEDS: SODIUM BICARBONATE 650 MG TABLET PO SCH ×2 (08:21→20:55)
[2017-10-22] MEDS: DOCUSATE 100 MG CAPSULE PO SCH ×2 (08:21→20:55)
[2017-10-22] MEDS ORDERED: SODIUM CHLORIDE 0.9% 1,000 ML IV SCH (09:07)
[2017-10-22] MEDS ORDERED: VANCOMYCIN PMX 1GM/200ML 200 ML IVPB ONE (09:30)
[2017-10-22] MEDS ORDERED: hydrALAzine 20 MG/ML, 1ML ONE (13:28)
[2017-10-22] MEDS ORDERED: hydrALAzine 20 MG/ML, 1ML IV PRN (13:30)
[2017-10-22] MEDS ORDERED: MIDAZOLAM 1 MG/ML, 5ML ONE (14:13)
[2017-10-22] MEDS ORDERED: MIDAZOLAM 1 MG/ML, 2ML ONE ×2 (14:13)
[2017-10-22] MEDS ORDERED: VANCOMYCIN PMX 1GM/200ML 200 ML ONE (14:14)
[2017-10-22] MEDS ORDERED: VANCOMYCIN 500 MG ONE (14:14)
[2017-10-22] MEDS ORDERED: LIDOCAINE/PF 1%, 30ML ONE (14:14)
[2017-10-22] MEDS ORDERED: FENTANYL PF 100 MCG/2ML ONE (14:15)
[2017-10-22] MEDS ORDERED: LABETALOL 5MG/ML, 20ML ONE (15:23)
[2017-10-22] MEDS ORDERED: HOLD MEDICATION MC PRN (15:30)
[2017-10-22] MEDS ORDERED: WARFARIN 2.5 MG TABLET PO-COUM ONE (18:00)
[2017-10-23] MEDS: hydrALAzine 20 MG/ML, 1ML IV PRN ×2 (01:49→16:01)
[2017-10-23] MEDS ORDERED: FENTANYL PF 100 MCG/2ML ONE ×2 (03:10→16:17)
[2017-10-23] MEDS ORDERED: FENTANYL PF 100 MCG/2ML IV ONE ×2 (03:30→16:30)
[2017-10-23 04:31] VITALS: BP 132/63
[2017-10-23 04:44] LABS: PROTHROMBIN TIME 20.5 Seconds (9.6-11.5)
[2017-10-23 04:49] LABS: ANION GAP 9 mmol/L (5-15); CALCIUM 8.6 mg/dL (8.5-10.1); CHLORIDE 107 mmol/L (98-107)
[2017-10-23] MEDS: LEVOTHYROXINE 112 MCG TABLET PO SCH (06:04)
[2017-10-23] MEDS: ACETAMINOPHEN 325 MG TABLET PO PRN ×4 (06:04→22:41)
[2017-10-23] MEDS: SODIUM CHLORIDE FLUSH 10ML SYR IVF SCH ×3 (08:27→21:00)
[2017-10-23] MEDS: SODIUM BICARBONATE 650 MG TABLET PO SCH ×2 (08:27→21:39)
[2017-10-23] MEDS: FLUOXETINE HCL 20 MG CAPSULE PO SCH (08:27)
[2017-10-23] MEDS: DOCUSATE 100 MG CAPSULE PO SCH ×2 (08:27→21:39)
[2017-10-23] MEDS: FUROSEMIDE 20 MG/2 ML IV SCH (10:57)
[2017-10-23] MEDS ORDERED: MAGNESIUM HYDROXIDE 8%, 30ML UDC PO PRN (12:30)
[2017-10-23] MEDS ORDERED: WARFARIN 5 MG TABLET PO-COUM ONE (18:00)
[2017-10-23] MEDS: ATORVASTATIN 40 MG TABLET PO SCH (21:39)
[2017-10-24 03:20] LABS: ANION GAP 10 mmol/L (5-15); CALCIUM 8.4 mg/dL (8.5-10.1); CHLORIDE 105 mmol/L (98-107); CREATININE 0.78 mg/dL (0.55-1.02)
[2017-10-24 03:23] LABS: INTERNATIONAL NORMALIZED RATIO 2.09 (0.93-1.1); PROTHROMBIN TIME 21.4 Seconds (9.6-11.5)
[2017-10-24 04:01] VITALS: BP 161/72
[2017-10-24] MEDS: ACETAMINOPHEN 325 MG TABLET PO PRN ×4 (04:04→21:45)
[2017-10-24] MEDS: LEVOTHYROXINE 112 MCG TABLET PO SCH (05:42)
[2017-10-24] MEDS ORDERED: KETOROLAC 30 MG/1 ML IV SCH (06:30)
[2017-10-24 07:04] VITALS: BP 143/80
[2017-10-24] MEDS: FUROSEMIDE 20 MG/2 ML IV SCH ×2 (09:00→17:50)
[2017-10-24] MEDS: SODIUM CHLORIDE FLUSH 10ML SYR IVF SCH ×3 (09:00→21:44)
[2017-10-24] MEDS: ALLOPURINOL 100 MG TABLET PO SCH (09:52)
[2017-10-24] MEDS: SODIUM BICARBONATE 650 MG TABLET PO SCH ×2 (09:52→21:45)
[2017-10-24] MEDS: CHOLECALCIFEROL 1,000 UNIT TABLET PO SCH (09:52)
[2017-10-24] MEDS: ASPIRIN 81 MG TABLET EC PO SCH (09:52)
[2017-10-24] MEDS: DOCUSATE 100 MG CAPSULE PO SCH ×2 (09:52→21:44)
[2017-10-24] MEDS: BISACODYL 5 MG EC TABLET PO PRN (09:52)
[2017-10-24] MEDS: FLUOXETINE HCL 20 MG CAPSULE PO SCH (09:53)
[2017-10-24] MEDS ORDERED: ALBUTEROL/IPRATROPIUM 2.5MG/0.5MG, 3 ML ONE (10:47)
[2017-10-24] MEDS ORDERED: ALBUTEROL/IPRATROPIUM 2.5MG/0.5MG, 3 ML NPPB PRN (11:30)
[2017-10-24 14:00] VITALS: BP 146/76
[2017-10-24] MEDS: METOPROLOL TARTRATE 25 MG TABLET PO SCH (17:51)
[2017-10-24] MEDS ORDERED: WARFARIN 5 MG TABLET PO-COUM ONE (18:00)
[2017-10-24 18:58] VITALS: BP 166/72
[2017-10-24] MEDS: ATORVASTATIN 40 MG TABLET PO SCH (21:45)
[2017-10-25 02:03] VITALS: BP 168/82
[2017-10-25] MEDS: ACETAMINOPHEN 325 MG TABLET PO PRN ×6 (02:20→22:08)
[2017-10-25] MEDS: hydrALAzine 20 MG/ML, 1ML IV PRN (02:33)
[2017-10-25 03:00] VITALS: BP 148/72
[2017-10-25 05:38] LABS: BASOPHILS # (AUTO) 0.06 x10^3/uL (0-0.1); BASOPHILS % (AUTO) 1 % (0-1); EOSINOPHILS # (AUTO) 0.15 x10^3/uL (0-0.4); EOSINOPHILS % (AUTO) 2 % (1-7); LYMPHOCYTES # (AUTO) 0.78 x10^3/uL (1-3.4); LYMPHOCYTES % (AUTO) 9 % (22-44); MD NO; MEAN CORPUSCULAR HEMOGLOBIN 30.3 pg (27.0-34.8); MEAN CORPUSCULAR HGB CONC 33.3 g/dL (32.4-35.8); MEAN PLATELET VOLUME 7.4 fL (7.4-10.4); MONOCYTES # (AUTO) 0.67 x10^3/uL (0.2-0.8); MONOCYTES % (AUTO) 8 % (2-9); NEUTROPHILS # (AUTO) 6.94 x10^3/uL (1.8-6.8); NEUTROPHILS % (AUTO) 81 % (42-75); PLATELET COUNT 221 x10^3/uL (130-400); RED CELL DISTRIBUTION WIDTH 15.1 % (9.6-15.2)
[2017-10-25 05:39] LABS: ANION GAP 10 mmol/L (5-15); CALCIUM 8.7 mg/dL (8.5-10.1); CHLORIDE 104 mmol/L (98-107)
[2017-10-25] MEDS: METOPROLOL TARTRATE 25 MG TABLET PO SCH ×2 (06:23→17:28)
[2017-10-25] MEDS: LEVOTHYROXINE 112 MCG TABLET PO SCH (06:23)
[2017-10-25 06:27] LABS: INTERNATIONAL NORMALIZED RATIO 3.35 (0.93-1.1)
[2017-10-25 07:14] VITALS: BP 154/76
[2017-10-25] MEDS ORDERED: LIDOCAINE 1%, 20ML ONE (08:00)
[2017-10-25 10:00] VITALS: BP 135/65
[2017-10-25] MEDS: FUROSEMIDE 20 MG/2 ML IV SCH ×2 (10:03→17:27)
[2017-10-25] MEDS: DOCUSATE 100 MG CAPSULE PO SCH ×2 (10:03→22:08)
[2017-10-25] MEDS: SODIUM BICARBONATE 650 MG TABLET PO SCH ×2 (10:04→22:08)
[2017-10-25] MEDS: CHOLECALCIFEROL 1,000 UNIT TABLET PO SCH (10:04)
[2017-10-25] MEDS: FLUOXETINE HCL 20 MG CAPSULE PO SCH (10:04)
[2017-10-25] MEDS: SODIUM CHLORIDE FLUSH 10ML SYR IVF SCH ×2 (10:04→22:09)
[2017-10-25] MEDS: ASPIRIN 81 MG TABLET EC PO SCH (10:04)
[2017-10-25] MEDS: ALLOPURINOL 100 MG TABLET PO SCH (10:05)
[2017-10-25 13:23] VITALS: BP 138/67
[2017-10-25] MEDS: POTASSIUM CHLORIDE 20 MEQ TAB.ER.PRT PO SCH (13:45)
[2017-10-25] MEDS ORDERED: WARFARIN 1 MG TABLET PO-COUM ONE (18:00)
[2017-10-25 19:16] VITALS: BP 133/78
[2017-10-25] MEDS: ATORVASTATIN 40 MG TABLET PO SCH (22:08)
[2017-10-26] MEDS ORDERED: MELATONIN 3 MG TABLET ONE (00:02)
[2017-10-26] MEDS: MELATONIN 3 MG TABLET PO PRN (00:04)
[2017-10-26 01:17] VITALS: BP 134/68
[2017-10-26 05:29] LABS: ANION GAP 8 mmol/L (5-15); CALCIUM 8.4 mg/dL (8.5-10.1); CHLORIDE 103 mmol/L (98-107); CREATININE 0.69 mg/dL (0.55-1.02)
[2017-10-26 05:33] LABS: INTERNATIONAL NORMALIZED RATIO 4.35 (0.93-1.1)
[2017-10-26 05:59] LABS: BASOPHILS # (AUTO) 0.01 x10^3/uL (0-0.1); BASOPHILS % (AUTO) 0 % (0-1); EOSINOPHILS % (AUTO) 3 % (1-7); LYMPHOCYTES # (AUTO) 0.72 x10^3/uL (1-3.4); LYMPHOCYTES % (AUTO) 10 % (22-44); MD NO; MEAN CORPUSCULAR HEMOGLOBIN 30.9 pg (27.0-34.8); MEAN CORPUSCULAR HGB CONC 34.3 g/dL (32.4-35.8); MEAN CORPUSCULAR VOLUME 90.1 fL (80-100); MEAN PLATELET VOLUME 7.5 fL (7.4-10.4); MONOCYTES # (AUTO) 0.74 x10^3/uL (0.2-0.8); MONOCYTES % (AUTO) 10 % (2-9); NEUTROPHILS # (AUTO) 5.51 x10^3/uL (1.8-6.8); NEUTROPHILS % (AUTO) 77 % (42-75); PLATELET COUNT 227 x10^3/uL (130-400); RED CELL DISTRIBUTION WIDTH 14.9 % (9.6-15.2)
[2017-10-26] MEDS: LEVOTHYROXINE 112 MCG TABLET PO SCH (06:11)
[2017-10-26] MEDS: METOPROLOL TARTRATE 25 MG TABLET PO SCH ×2 (06:11→17:04)
[2017-10-26] MEDS: ACETAMINOPHEN 325 MG TABLET PO PRN ×3 (06:15→18:00)
[2017-10-26 07:45] VITALS: BP 116/68
[2017-10-26] MEDS: DOCUSATE 100 MG CAPSULE PO SCH ×2 (09:00→20:48)
[2017-10-26] MEDS: ASPIRIN 81 MG TABLET EC PO SCH (10:00)
[2017-10-26] MEDS: SODIUM BICARBONATE 650 MG TABLET PO SCH ×2 (10:00→20:49)
[2017-10-26] MEDS: ALLOPURINOL 100 MG TABLET PO SCH (10:00)
[2017-10-26] MEDS: POTASSIUM CHLORIDE 20 MEQ TAB.ER.PRT PO SCH (10:00)
[2017-10-26] MEDS: FUROSEMIDE 20 MG/2 ML IV SCH ×2 (10:00→18:00)
[2017-10-26] MEDS: FLUOXETINE HCL 20 MG CAPSULE PO SCH (10:00)
[2017-10-26] MEDS: SODIUM CHLORIDE FLUSH 10ML SYR IVF SCH ×2 (10:01→20:49)
[2017-10-26] MEDS: CHOLECALCIFEROL 1,000 UNIT TABLET PO SCH (10:01)
[2017-10-26 13:57] VITALS: BP 118/57
[2017-10-26] MEDS ORDERED: HEMORRHOIDAL OINT, 28 GM (PREP H) RC PRN (18:30)
[2017-10-26 20:00] VITALS: BP 125/78
[2017-10-26] MEDS: ATORVASTATIN 40 MG TABLET PO SCH (20:48)
[2017-10-26] MEDS: DIPHENHYDRAMINE 25 MG CAPSULE PO PRN (20:49)
[2017-10-27 00:44] VITALS: BP 112/72
[2017-10-27 02:00] VITALS: BP 100/68
[2017-10-27] MEDS: ACETAMINOPHEN 325 MG TABLET PO PRN ×2 (04:09→15:13)
[2017-10-27 05:17] LABS: BASOPHILS # (AUTO) 0.02 x10^3/uL (0-0.1); BASOPHILS % (AUTO) 0 % (0-1); EOSINOPHILS # (AUTO) 0.23 x10^3/uL (0-0.4); EOSINOPHILS % (AUTO) 2 % (1-7); LYMPHOCYTES # (AUTO) 0.72 x10^3/uL (1-3.4); LYMPHOCYTES % (AUTO) 6 % (22-44); MD NO; MEAN CORPUSCULAR HEMOGLOBIN 31.1 pg (27.0-34.8); MEAN CORPUSCULAR VOLUME 91.5 fL (80-100); MEAN PLATELET VOLUME 7.7 fL (7.4-10.4); MONOCYTES # (AUTO) 0.47 x10^3/uL (0.2-0.8); MONOCYTES % (AUTO) 4 % (2-9); NEUTROPHILS % (AUTO) 89 % (42-75); PLATELET COUNT 246 x10^3/uL (130-400); RED BLOOD COUNT 3.76 x10^6/uL (3.82-5.3); RED CELL DISTRIBUTION WIDTH 14.7 % (9.6-15.2)
[2017-10-27 05:18] LABS: ANION GAP 5 mmol/L (5-15); CALCIUM 8.1 mg/dL (8.5-10.1); CHLORIDE 102 mmol/L (98-107)
[2017-10-27 05:19] LABS: CREATININE 0.74 mg/dL (0.55-1.02)
[2017-10-27 05:26] LABS: INTERNATIONAL NORMALIZED RATIO 3.72 (0.93-1.1); PROTHROMBIN TIME 37.7 Seconds (9.6-11.5)
[2017-10-27 05:31] VITALS: BP 149/69
[2017-10-27] MEDS: METOPROLOL TARTRATE 25 MG TABLET PO SCH ×2 (06:16→18:00)
[2017-10-27] MEDS: LEVOTHYROXINE 112 MCG TABLET PO SCH (06:16)
[2017-10-27 07:34] VITALS: BP 146/75
[2017-10-27] MEDS: FLUOXETINE HCL 20 MG CAPSULE PO SCH (08:53)
[2017-10-27] MEDS: DOCUSATE 100 MG CAPSULE PO SCH ×2 (08:53→20:30)
[2017-10-27] MEDS: ASPIRIN 81 MG TABLET EC PO SCH (08:53)
[2017-10-27] MEDS: ALLOPURINOL 100 MG TABLET PO SCH (08:53)
[2017-10-27] MEDS: CHOLECALCIFEROL 1,000 UNIT TABLET PO SCH (08:53)
[2017-10-27] MEDS: POTASSIUM CHLORIDE 20 MEQ TAB.ER.PRT PO SCH (08:53)
[2017-10-27] MEDS: SODIUM CHLORIDE FLUSH 10ML SYR IVF SCH ×2 (08:53→20:29)
[2017-10-27] MEDS: SODIUM BICARBONATE 650 MG TABLET PO SCH ×2 (08:53→20:31)
[2017-10-27 13:32] VITALS: BP 117/61
[2017-10-27 17:16] LABS: MICROSCOPIC AUTO
[2017-10-27] MEDS: FUROSEMIDE 40 MG/4 ML IV SCH (18:00)
[2017-10-27 18:48] VITALS: BP 145/74
[2017-10-27] MEDS: ATORVASTATIN 40 MG TABLET PO SCH (20:30)
[2017-10-28] MEDS: ACETAMINOPHEN 325 MG TABLET PO PRN ×3 (00:11→22:55)
[2017-10-28 00:54] VITALS: BP 119/56
[2017-10-28 05:38] LABS: ANION GAP 6 mmol/L (5-15); CALCIUM 7.8 mg/dL (8.5-10.1); CHLORIDE 102 mmol/L (98-107)
[2017-10-28 05:39] LABS: CREATININE 0.68 mg/dL (0.55-1.02)
[2017-10-28 05:43] VITALS: BP 130/69
[2017-10-28] MEDS: LEVOTHYROXINE 112 MCG TABLET PO SCH (05:44)
[2017-10-28] MEDS: METOPROLOL TARTRATE 25 MG TABLET PO SCH ×2 (05:44→17:35)
[2017-10-28 05:45] LABS: INTERNATIONAL NORMALIZED RATIO 2.42 (0.93-1.1); PROTHROMBIN TIME 24.7 Seconds (9.6-11.5)
[2017-10-28 07:20] LABS: BASOPHILS # (AUTO) 0.07 x10^3/uL (0-0.1); BASOPHILS % (AUTO) 1 % (0-1); EOSINOPHILS # (AUTO) 0.25 x10^3/uL (0-0.4); EOSINOPHILS % (AUTO) 3 % (1-7); LYMPHOCYTES # (AUTO) 0.65 x10^3/uL (1-3.4); LYMPHOCYTES % (AUTO) 7 % (22-44); MD NO; MEAN CORPUSCULAR HEMOGLOBIN 30.3 pg (27.0-34.8); MEAN CORPUSCULAR HGB CONC 33.4 g/dL (32.4-35.8); MEAN CORPUSCULAR VOLUME 90.9 fL (80-100); MEAN PLATELET VOLUME 7.8 fL (7.4-10.4); MONOCYTES # (AUTO) 0.61 x10^3/uL (0.2-0.8); MONOCYTES % (AUTO) 6 % (2-9); NEUTROPHILS # (AUTO) 8.53 x10^3/uL (1.8-6.8); NEUTROPHILS % (AUTO) 84 % (42-75); PLATELET COUNT 234 x10^3/uL (130-400); RED BLOOD COUNT 3.58 x10^6/uL (3.82-5.3); RED CELL DISTRIBUTION WIDTH 15.4 % (9.6-15.2)
[2017-10-28] MEDS: ONDANSETRON 2MG/ML, 2ML IVPush PRN (08:00)
[2017-10-28] MEDS: FLUOXETINE HCL 20 MG CAPSULE PO SCH (08:00)
[2017-10-28] MEDS: FUROSEMIDE 40 MG/4 ML IV SCH ×2 (08:00→17:35)
[2017-10-28] MEDS: DOCUSATE 100 MG CAPSULE PO SCH ×2 (08:00→20:43)
[2017-10-28] MEDS: ALLOPURINOL 100 MG TABLET PO SCH (08:01)
[2017-10-28] MEDS: CHOLECALCIFEROL 1,000 UNIT TABLET PO SCH (08:01)
[2017-10-28] MEDS: POTASSIUM CHLORIDE 20 MEQ TAB.ER.PRT PO SCH (08:01)
[2017-10-28] MEDS: ASPIRIN 81 MG TABLET EC PO SCH (08:01)
[2017-10-28] MEDS: SODIUM CHLORIDE FLUSH 10ML SYR IVF SCH ×2 (08:19→20:43)
[2017-10-28] MEDS: SODIUM BICARBONATE 650 MG TABLET PO SCH ×2 (08:19→20:43)
[2017-10-28 08:50] VITALS: BP 146/71
[2017-10-28 14:10] VITALS: BP 105/68
[2017-10-28] MEDS ORDERED: LIDOCAINE-MPF 2% ,5ML ONE (14:42)
[2017-10-28 19:16] VITALS: BP 116/66
[2017-10-28] MEDS: MELATONIN 3 MG TABLET PO PRN (20:43)
[2017-10-28] MEDS: ATORVASTATIN 40 MG TABLET PO SCH (20:43)
[2017-10-28] MEDS: DIPHENHYDRAMINE 25 MG CAPSULE PO PRN (22:55)
[2017-10-29 03:02] VITALS: BP 118/64
[2017-10-29 05:27] LABS: BASOPHILS # (AUTO) 0.05 x10^3/uL (0-0.1); BASOPHILS % (AUTO) 1 % (0-1); EOSINOPHILS # (AUTO) 0.28 x10^3/uL (0-0.4); EOSINOPHILS % (AUTO) 3 % (1-7); LYMPHOCYTES # (AUTO) 0.81 x10^3/uL (1-3.4); LYMPHOCYTES % (AUTO) 8 % (22-44); MD NO; MEAN CORPUSCULAR HGB CONC 33.8 g/dL (32.4-35.8); MEAN CORPUSCULAR VOLUME 91.8 fL (80-100); MEAN PLATELET VOLUME 7.4 fL (7.4-10.4); MONOCYTES # (AUTO) 0.72 x10^3/uL (0.2-0.8); MONOCYTES % (AUTO) 7 % (2-9); NEUTROPHILS % (AUTO) 81 % (42-75); PLATELET COUNT 238 x10^3/uL (130-400); RED BLOOD COUNT 3.42 x10^6/uL (3.82-5.3); RED CELL DISTRIBUTION WIDTH 15.2 % (9.6-15.2)
[2017-10-29 05:39] LABS: ANION GAP 4 mmol/L (5-15); CALCIUM 7.9 mg/dL (8.5-10.1); CHLORIDE 98 mmol/L (98-107); INTERNATIONAL NORMALIZED RATIO 1.85 (0.93-1.1)
[2017-10-29 05:41] LABS: CREATININE 0.86 mg/dL (0.55-1.02)
[2017-10-29] MEDS: LEVOTHYROXINE 112 MCG TABLET PO SCH (05:43)
[2017-10-29] MEDS: METOPROLOL TARTRATE 25 MG TABLET PO SCH (05:43)
[2017-10-29 06:53] VITALS: BP 116/66
[2017-10-29] MEDS: FUROSEMIDE 40 MG/4 ML IV SCH (08:23)
[2017-10-29] MEDS: ASPIRIN 81 MG TABLET EC PO SCH (08:24)
[2017-10-29] MEDS: DOCUSATE 100 MG CAPSULE PO SCH (08:24)
[2017-10-29] MEDS: FLUOXETINE HCL 20 MG CAPSULE PO SCH (08:25)
[2017-10-29] MEDS: POTASSIUM CHLORIDE 20 MEQ TAB.ER.PRT PO SCH (08:25)
[2017-10-29] MEDS: ALLOPURINOL 100 MG TABLET PO SCH (08:25)
[2017-10-29] MEDS: CHOLECALCIFEROL 1,000 UNIT TABLET PO SCH (08:26)
[2017-10-29] MEDS: SODIUM BICARBONATE 650 MG TABLET PO SCH (08:26)
[2017-10-29] MEDS: SODIUM CHLORIDE FLUSH 10ML SYR IVF SCH (08:32)
[2017-10-29] MEDS ORDERED: POTA20TA6 PO (09:12)
[2017-10-29] MEDS ORDERED: TRAM50TA2 PO (09:12)
[2017-10-29] MEDS ORDERED: FURO40TA6 PO (09:12)
[2017-10-29] MEDS ORDERED: ASPI-621 PO (09:12)
[2017-10-29] MEDS ORDERED: DIPH25CA61 PO (09:12)
[2017-10-29] MEDS ORDERED: ACET325T14 PO (09:12)
[2017-10-29] MEDS ORDERED: CLOP75TA52 PO (09:25)
[2017-10-29] MEDS: ONDANSETRON 2MG/ML, 2ML IVPush PRN (11:11)
[2017-10-29] MEDS: ACETAMINOPHEN 325 MG TABLET PO PRN (12:44)
[2017-10-29 13:53] VITALS: BP 130/64
[2017-11-03] MEDS ORDERED: BONIVA 150 MG PO SCH (09:00)
== END 2017-10-29 14:29 | DRG 219 ==
LOC: 5SO 04:29 → CSU 09:35 → 5SO 10-23 18:36
PROVIDERS: ADMIT Thoracic Surgery (Cardiothoracic Vascular Surgery); ATTEND Thoracic Surgery (Cardiothoracic Vascular Surgery)
PROC: 021009W Bypass Coronary Artery, One Artery from Aorta with Autologous Venous Tissue, Open Approach (ICD-10-PCS; 2017-10-17)
PROC: 06BP4ZZ Excision of Right Saphenous Vein, Percutaneous Endoscopic Approach (ICD-10-PCS; 2017-10-17)
PROC: 30233N1 Transfusion of Nonautologous Red Blood Cells into Peripheral Vein, Percutaneous Approach (ICD-10-PCS; 2017-10-17)
PROC: 5A1221Z Performance of Cardiac Output, Continuous (ICD-10-PCS; 2017-10-17)
PROC: B24BZZ4 Ultrasonography of Heart with Aorta, Transesophageal (ICD-10-PCS; 2017-10-17)
PROC: 02RG08Z Replacement of Mitral Valve with Zooplastic Tissue, Open Approach (ICD-10-PCS; principal; 2017-10-17 07:30)
PROC: 0T9B70Z Drainage of Bladder with Drainage Device, Via Natural or Artificial Opening (ICD-10-PCS; 2017-10-18)
PROC: 02H63JZ Insertion of Pacemaker Lead into Right Atrium, Percutaneous Approach (ICD-10-PCS; 2017-10-22)
PROC: 0JH606Z Insertion of Pacemaker, Dual Chamber into Chest Subcutaneous Tissue and Fascia, Open Approach (ICD-10-PCS; 2017-10-22)
PROC: 02HK3JZ Insertion of Pacemaker Lead into Right Ventricle, Percutaneous Approach (ICD-10-PCS; 2017-10-22)
PROC: 0W993ZZ Drainage of Right Pleural Cavity, Percutaneous Approach (ICD-10-PCS; 2017-10-25)
PROC: 0W9B3ZZ Drainage of Left Pleural Cavity, Percutaneous Approach (ICD-10-PCS; 2017-10-28)
DX: I05.2 Rheumatic mitral stenosis with insufficiency (principal); I50.31 Acute diastolic (congestive) heart failure; E87.4 Mixed disorder of acid-base balance; J98.11 Atelectasis; I13.0 Hypertensive heart and chronic kidney disease with heart failure and stage 1 through stage 4 chronic kidney disease, or unspecified chronic kidney disease; N18.4 Chronic kidney disease, stage 4 (severe); N17.9 Acute kidney failure, unspecified; E03.9 Hypothyroidism, unspecified; E78.5 Hyperlipidemia, unspecified; F17.210 Nicotine dependence, cigarettes, uncomplicated; F32.9 Major depressive disorder, single episode, unspecified; G47.33 Obstructive sleep apnea (adult) (pediatric); I25.10 Atherosclerotic heart disease of native coronary artery without angina pectoris; I27.20 Pulmonary hypertension, unspecified; I48.91 Unspecified atrial fibrillation; Z79.01 Long term (current) use of anticoagulants; Z85.3 Personal history of malignant neoplasm of breast; Z90.710 Acquired absence of both cervix and uterus; Z92.21 Personal history of antineoplastic chemotherapy; Z92.3 Personal history of irradiation
CPT/HCPCS: 32555; 33208; 36415; 36600; 70450; 71045; 71046; 80048; 80053; 81001; 82010; 82040; 82330; 82800; 82803; 82810; 82947; 82962; 83036; 83605; 83735; 84132; 84295; 85014; 85018; 85025; 85049; 85347; 85610; 85730; 86850; 86900; 86923; 87081; 88112; 88305; 88341; 88342; 93005; 93306; 93312; 93321; 93325; 93880; 93970; 94002; 94640; 99156; 99157; C1779; C1785; C1892; J0171; J0697; J1644; J1815; J1885; J1940; J2250; J2405; J2704; J2720; J3010; J3370; J3475; J3480; J3490; J7620; P9045; P9047; C1751; C1760; C1762; G0461; J0360; J2370; J2440; J2930; J7030; J7050; J7120; P9016; Q0163

== ENCOUNTER → 2018-01-20 | Outpatient (CLI) | payer MEDICARE, OTHER ==
[~2018-01-20] MED LIST changes: +ACET325T14 PO; +ASPI-621 PO; +CLOP75TA52 PO; +DIPH25CA61 PO; +FURO40TA6 PO; -LOSA25TA5 PO; +LOSA25TA6 PO; +POTA20TA6 PO; +TRAM50TA2 PO
== END | disposition home or self-care (01) ==
LOC: CFH 14:28
PROVIDERS: ATTEND Internal Medicine Cardiovascular Disease
DX: I07.1 Rheumatic tricuspid insufficiency (principal); I35.8 Other nonrheumatic aortic valve disorders; I11.9 Hypertensive heart disease without heart failure; I25.10 Atherosclerotic heart disease of native coronary artery without angina pectoris; E78.5 Hyperlipidemia, unspecified; Z85.3 Personal history of malignant neoplasm of breast; Z72.0 Tobacco use; Z95.0 Presence of cardiac pacemaker; Z95.1 Presence of aortocoronary bypass graft; Z95.2 Presence of prosthetic heart valve
CPT/HCPCS: 93306

== ENCOUNTER 2018-08-10 10:56 | Outpatient (CLI) | payer MEDICARE, OTHER ==
[~2018-08-10 10:56] MED LIST changes: -ASPI-621 PO; +ASPI81TA45 PO; -IBAN150T PO; +IBAN150T15 PO; +LOSA25TA25 PO; -LOSA25TA6 PO
== END 2018-08-10 23:59 | disposition home or self-care (01) ==
LOC: CFH 10:56
PROVIDERS: ATTEND Radiology Radiation Oncology
DX: Z12.31 Encounter for screening mammogram for malignant neoplasm of breast (principal)
CPT/HCPCS: 77063; 77067

== ENCOUNTER → 2018-08-14 | Outpatient (CLI) | payer MEDICARE, OTHER | END | disposition home or self-care (01) | LOC: ROC 08:11 | PROVIDERS: ATTEND Radiology Radiation Oncology | DX: Z08 Encounter for follow-up examination after completed treatment for malignant neoplasm (principal); Z85.3 Personal history of malignant neoplasm of breast | CPT/HCPCS: G0463 ==

== ENCOUNTER → 2019-08-04 | Outpatient (CLI) | payer MEDICARE, OTHER ==
[~2019-08-04] MED LIST changes: +SIMV20TA19 PO; -SIMV20TA3 PO
== END | disposition home or self-care (01) ==
LOC: CFH 12:20
PROVIDERS: ATTEND Nurse Practitioner Family
DX: I08.8 Other rheumatic multiple valve diseases (principal); I25.10 Atherosclerotic heart disease of native coronary artery without angina pectoris; I10 Essential (primary) hypertension
CPT/HCPCS: 93306

== ENCOUNTER → 2019-09-02 | Outpatient (CLI) | payer MEDICARE, OTHER | END | disposition home or self-care (01) | LOC: CFH 10:28 | PROVIDERS: ATTEND Radiology Radiation Oncology | DX: Z12.31 Encounter for screening mammogram for malignant neoplasm of breast (principal); N95.8 Other specified menopausal and perimenopausal disorders; M85.88 Other specified disorders of bone density and structure, other site; Z85.3 Personal history of malignant neoplasm of breast | CPT/HCPCS: 77063; 77067; 77080 ==

== ENCOUNTER 2019-09-16 07:27 | Outpatient (CLI) | payer MEDICARE, OTHER | END 2019-09-16 23:59 | disposition home or self-care (01) | LOC: ROC 07:27 | PROVIDERS: ATTEND Radiology Radiation Oncology | DX: Z08 Encounter for follow-up examination after completed treatment for malignant neoplasm (principal); C50.412 Malignant neoplasm of upper-outer quadrant of left female breast | CPT/HCPCS: G0463 ==

== ENCOUNTER → 2020-09-08 | Outpatient (CLI) | payer MEDICARE | END | disposition home or self-care (01) | LOC: CFH 13:43 | PROVIDERS: ATTEND Internal Medicine | DX: Z12.31 Encounter for screening mammogram for malignant neoplasm of breast (principal) | CPT/HCPCS: 77063; 77067 ==

== ENCOUNTER → 2020-11-17 | Outpatient (CLI) | payer MEDICARE, OTHER | END | disposition home or self-care (01) | LOC: CFH 13:10 | PROVIDERS: ATTEND Internal Medicine Cardiovascular Disease | DX: I08.8 Other rheumatic multiple valve diseases (principal); I25.10 Atherosclerotic heart disease of native coronary artery without angina pectoris | CPT/HCPCS: 93306 ==

== ENCOUNTER 2020-12-23 11:12 | Emergency (ER) | payer MEDICARE, OTHER ==
[~2020-12-23] VITALS: Ht 154.9 cm; Wt 51.0 kg
[~2020-12-23 11:12] MED LIST changes: +POTA-143 PO; -POTA20TA6 PO
--- NOTE | 2020-12-23 14:34 | NUR ---
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
--- NOTE | 2020-12-23 15:01 | NUR ---
Pt not in room. Addendum: 12/23/20 at 1532 by RAMONITA Pt back in room at 1530
[2020-12-23 15:41] VITALS: BP 168/67
[2020-12-23 15:54] LABS: INTERNATIONAL NORMALIZED RATIO 1.56 (0.93-1.1); PROTHROMBIN TIME 16.3 Seconds (9.6-11.5)
== END 2020-12-23 18:13 | disposition home or self-care (01) ==
LOC: ED 16:12
DX: R51.9 Headache, unspecified (principal); M54.9 Dorsalgia, unspecified; R07.81 Pleurodynia; R10.9 Unspecified abdominal pain; W18.30XA Fall on same level, unspecified, initial encounter; Y93.89 Activity, other specified; Y92.89 Other specified places as the place of occurrence of the external cause; Y99.8 Other external cause status
CPT/HCPCS: 36415; 70450; 72072; 72110; 72125; 85610; 99285